=== PATIENT | male | born 1960 | race Caucasian/White ===

== ENCOUNTER 2019-07-17 08:12 | Day surgery (SDC) | payer MEDICARE ==
[2019-07-17] MEDS ORDERED: ONDANSETRON HCL/PF 4 MG/ 2ML VIAL ONE (08:48)
[2019-07-17] MEDS ORDERED: PROPOFOL 200 MG/20 ML VIAL IV ONE (08:48)
[2019-07-17] MEDS ORDERED: ROCURONIUM BROMIDE 10 MG/ML 5ML VIAL ONE (08:48)
[2019-07-17] MEDS ORDERED: LIDOCAINE HCL 2% PF 100MG/5ML VIAL IJ ONE (08:48)
[2019-07-17] MEDS ORDERED: MIDAZOLAM HCL 2 MG/2 ML VIAL ONE (08:48)
[2019-07-17] MEDS ORDERED: LABETALOL HCL 20 MG/4 ML SYRINGE IV ONE (08:48)
[2019-07-17] MEDS ORDERED: SEVOFLURANE 250 ML LIQUID IH ONE (08:48)
[2019-07-17] MEDS ORDERED: SUGAMMADEX SODIUM 200 MG/2 ML VIAL IV ONE (08:48)
[2019-07-17] MEDS ORDERED: FAMOTIDINE 20 MG/2 ML VIAL IV ONE (08:48)
[2019-07-17] MEDS ORDERED: DEXAMETHASONE SODIUM PHOSPHATE 10 MG/ML VIAL ONE (08:48)
[2019-07-17] MEDS ORDERED: PHENYLEPHRINE HCL 10 MG/1 ML ONE (08:48)
[2019-07-17] MEDS ORDERED: LACTATED RINGERS 1,000 ML IV.SOLN IV ONE ×2 (08:48)
[2019-07-17] MEDS ORDERED: CLINDAMYCIN PHOSPHATE 900 MG/6 ML VIAL ONE (08:48)
--- NOTE | 2019-10-05 11:09 | Operative Note ---
PROCEDURE DATE: 07/17/2019 PREOPERATIVE DIAGNOSIS: 1. Herniated nucleus pulposus with central and bilateral foraminal stenosis, C5- 6. 2. Herniated nucleus pulposus with central and bilateral foraminal stenosis, C6- 7. POSTOPERATIVE DIAGNOSIS: 1. Herniated nucleus pulposus with central and bilateral foraminal stenosis, C5- 6. 2. Herniated nucleus pulposus with central and bilateral foraminal stenosis, C6- 7. PROCEDURES PERFORMED: 1. Radical discectomy anteriorly, C5-6. 2. Radical discectomy anteriorly, C6-7. 3. Partial vertebrectomy for decompression of central and bilateral foraminal stenosis, posterior inferior aspect of the C5 vertebral body. 4. Partial vertebrectomy for decompression of central and bilateral foraminal stenosis, posterior superior aspect of the C6 vertebral body. 5. Partial vertebrectomy for decompression of central and bilateral foraminal stenosis, posterior inferior aspect of the C6 vertebral body. 6. Partial vertebrectomy for decompression of central and bilateral foraminal stenosis, posterior superior aspect of the C7 vertebral body. 7. Placement of cervical total disc replacement arthroplasty at the C5-6 level. 8. Placement of cervical total disc replacement arthroplasty at the C6-7 level. 9. Intraoperative fluoroscopy and interpretation for needle placement. SURGEON: Peterson Guzman Jr., M.D. GUARD RAIL INSTALLER: [place] ANESTHESIA: General. COMPLICATIONS: None. CONDITION TO THE RECOVERY ROOM: Good. OPERATIVE FINDINGS: This patient had a large herniated nucleus pulposus and osteophyte formation resulting in central and bilateral foraminal stenosis from which he was symptomatic and unresponsive to conservative management at C5-6 and C6-7. The patient was counseled regarding options and elected to proceed with cervical total disc replacement arthroplasty at C5-6 and C6-7, which was carried out today with good alignment and positioning of the total disc replacements. Central and bilateral foraminal stenosis was relieved by judicious partial vertebrectomy at each level until nerve hook documented relief of the central and bilateral foraminal stenosis. DESCRIPTION OF PROCEDURE: The patient was taken to the operating room and intravenous antibiotics administered. The neck was shaved to the degree necessary. Steri-Drapes were applied at the intended surgical site edges. The surgical site was then scrubbed and prepped to sterility. Sterile draping then occurred. X-ray was brought into position and a radiographic marker was placed identifying the extended center line of the disc for intended surgical care. Beginning at the midline, a transverse surgical incision was made extending to the left approximately 2 cm. Once the epidermis was penetrated, the dermis was incised with electrocautery. Dissection through the subcutaneous tissue with Metzenbaum scissors and digitally was performed down until the interval between the trachea and the carotid triangle and the esophagus was clearly established down to the Longus colli muscles on the left side of the anterior cervical spine at the C5-6 level. Gentle retraction of the trachea and esophagus occurred to the right side while Kittner retractors were used to bluntly open the prevertebral fascia and reveal the annulus. Into the annulus was placed a safety needle and all retractors were removed and x-rays taken to confirm midline placement of the needle, and that the correct anatomic level was still identified. Electrocautery was then used to elevate the Longus colli muscles after [facility] Retractor blades were replaced. The needle had been removed. The [employer] Adjuster tined retractor blades of the appropriate length were then inserted under the Longus colli muscles and retracted to reveal the anterior disc space sufficiently from left to right. The annulus was then incised with a #15 blade scalpel and removed. Pituitary rongeurs were then used to begin to evacuate the disc material. [place] pins were then inserted into the midportion of the vertebral body anteriorly above and below the affected disc. [place] retractor was then placed and distraction began. This allowed larger pituitary rongeurs to be inserted and all disc material was removed back to the impinging posterior osteophytes. A curette was then used and the endplates were curettaged until all cartilaginous material was removed, exposing bleeding bone. A smaller curette was then used to penetrate the posterior osteophyte all the way down to the removal of a portion of the posterior longitudinal ligament revealing the dura. Once the dura was visualized, a combination of 1- and 2-mm Kerrison rongeurs were inserted beneath the posterior longitudinal ligament and resection began of the posterior longitudinal ligament and associated osteophytes and bone spurs emanating posteriorly causing the posterior and lateral recess stenosis. Once the osteophytes had been resected to sufficiency as documented radiographically and laterally as documented by using a nerve hook to prove complete decompression, Gelfoam was used as necessary to control hemostasis. The appropriate implant sizing tools were then used to establish the appropriate width, depth, and height for implant placement. Any osteophytes anteriorly necessary to remove were then also removed with a Kerrison rongeur to allow access and placement of the implant. The cervical total disc replacement implant of the appropriate size was then affixed to the carrier and impacted into the midline position as determined radiographically. The lateral C-arm fluoroscopy visualization was then used to drive the implant to the desired depth as determined radiographically. The device for removing the implant insertion tool was used and the implant insertion tool was removed. The implant carrier was then grasped in the appropriate tool, loosened and removed, leaving the implant in place. For the purpose of this portion of the process, the [place] retractor was placed into a compression mode to securely hold on to the implant while the insertion tools were removed. Following this, irrigation was carried out. The retractor was then removed and the wound examined for hemostasis, which was confirmed to be present. The [place] pins had been removed and bone wax placed in the vertebral body holes left by the [place] pin insertion to achieve hemostasis. A 3-0 Vicryl suture approximated the subcutaneous tissue. A 5-0 Vicryl then approximated the subcuticular tissue. Dermabond then approximated the epidermis. A sterile dressing was applied and the patient was taken to the recovery room in good condition where normal motor and sensory examination was confirmed to be present. After completing the procedure at the C5-6 level initially, the retractors were withdrawn and replaced at the C6-7 level in order to allow access. The identical procedure as described was then carried out at the C6-7 level, terminating with irrigation and closure of the wound and application of a dressing and cervical collar. The patient was then taken to the recovery room where good motor and sensory examination was confirmed to be present. PETERSON GUZMAN JR., M.D. GURPREET/chastity (Please copy [facility] provider when applicable) Job #[id number] RAMON
== END 2019-07-17 16:40 | disposition home or self-care (01) ==
LOC: OPSURG 08:12
PROVIDERS: ATTEND Orthopaedic Surgery
DX: M50.222 Other cervical disc displacement at C5-C6 level (principal); M50.223 Other cervical disc displacement at C6-C7 level; M48.02 Spinal stenosis, cervical region; M25.78 Osteophyte, vertebrae
CPT/HCPCS: 22856; 22858; J2001; J2250; J2370; J2405; J2704; J7120